=== PATIENT | male | born 1990 | race Caucasian/White ===

== ENCOUNTER 2017-06-13 01:51 | Emergency (ER) | payer OTHER ==
[~2017-06-13] VITALS: Ht 172.7 cm; Wt 88.5 kg
[~2017-06-13 01:51] MED LIST: SULF1TAB7 PO
--- NOTE | 2017-06-13 02:17 | ED Lower Extremity ---
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 LEFT KNEE ON A METAL CORNER POST OF A CHAIN LENGTH FENCE, AROUND 0030 TODAY KNEE IS SWOLLEN AND PAINFUL TO WALK ON NO OTHER INJURIES FROM INCIDENT NO PRIOR INJURIES TO THIS KNEE Allergies and Home Medications Allergies Coded Allergies: cephalexin (Verified Allergy, Mild, 05/04/14) Home Medications Trimethoprim/Sulfamethoxazole 1 Ea Tablet, 1 TAB PO BID Prescribed by: EM JAIN on 05/04/14 3597 Constitutional: no symptoms reported Musculoskeletal: see HPI Skin: no symptoms reported Psychiatric/Neurological: No Symptoms Reported Past Geoudzr-Znckck-Cbpxqc Hx Patient Social History Alcohol Use: Occasionally Uses Recreational Drug Use: No Smoking Status: Never a Smoker 2nd Hand Smoke Exposure: No Recent Foreign Travel: No Contact w/Someone Who Travel: No Recent Hopitalizations: No Immunizations Up To Date Tetanus Booster (TDap): Unknown Seasonal Allergies Seasonal Allergies: No Past Medical History Surgeries: No Respiratory: No Cardiac: No Neurological: No Gastrointestinal: No Musculoskeletal: No Endocrine: No Cancer: No Psychosocial: No Integumentary: No Blood Disorders: No Adverse Reaction/Blood Tranf: No Family Medical History No Pertinent Family Hx Physical Exam Vital Signs Capillary Refill : General Appearance: WD/WN, no apparent distress 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 Referrals: LEONID JORDAN MD NO,LOCAL PHYSICIAN (PCP) Primary Care Physician Patient Instructions: Contusion (DC), Going Up and Down Curbs or Stairs With a Walker or Crutches, How to Use Crutches, Knee Immobilizer (DC), Knee Sprain (DC) Add. Discharge Instructions: ICE TO AREA AT 20 MINUTE INTERVALS ANJUM WRAP AND KNEE IMMOBILIZER AND CRUTCHES AT ALL TIMES ELEVATE LEG MUCH POSSIBLE FOLLOW UP WITH DR. JORDAN / ORTHO 4 STATES IN 1-2 DAYS FOR FURTHER CARE All discharge instructions reviewed with patient and/or family. Voiced understanding. Scripts Naproxen (Naproxen) 500 Mg Tablet 500 MG PO BID, #20 TAB Prov: CHERYL COHEN DO 06/13/17 Work/School Note: Work Release Form Date Seen in the Emergency Department: Jun 13, 2017 Restrictions: Need Release from Doctor CHERYL COHEN DO Jun 13, 2017 02:17
[2017-06-13] MEDS ORDERED: RX-NAPROXEN (NAPROSYN) 250 MG TAB PPK#4 PO STA (02:41)
[2017-06-13] MEDS ORDERED: NAPR-915 PO (02:44)
[2017-06-13 02:45] VITALS: BP 122/74
[2017-06-13] MEDS ORDERED: RX-NAPROXEN (NAPROSYN) 250 MG TAB PPK#4 PO PRN (03:15)
--- NOTE | 2017-06-13 06:56 | Diagnostic Imaging Report ---
INDICATION: Left knee pain and swelling. Injury. FINDINGS: Alignment of the left knee appears normal. There is no acute fracture. There is no significant joint effusion. There is no focal soft tissue abnormality. Nonspecific density projecting over the left leg along the posterior aspect of the calf on the lateral view may reflect a tattoo. This appears to be on the skin surface. IMPRESSION: No evidence of an acute fracture, malalignment or joint effusion. Dictated by: Dictated on workstation # [id number]
== END 2017-06-13 02:45 | disposition home or self-care (01) ==
LOC: EDUNIT# 01:51 → ER 01:55
DX: S80.02XA Contusion of left knee, initial encounter (principal); Z88.1 Allergy status to other antibiotic agents; W22.09XA Striking against other stationary object, initial encounter
CPT/HCPCS: 73562

== ENCOUNTER 2022-12-18 18:26 | Emergency (ER) | payer OTHER ==
[~2022-12-18] VITALS: Ht 172 cm; Wt 99.0 kg
[~2022-12-18 18:26] MED LIST changes: +NAPR-915 PO
[2022-12-18 18:32] VITALS: BP 137/89
--- NOTE | 2022-12-18 18:36 | ED Abdominal Pain ---
General Stated Complaint: RIGHT RIB PAIN Source of Information: Patient Exam Limitations: No Limitations History of Present Illness Date Seen by Provider: Dec 18, 2022 Time Seen by Provider: 18:30 Initial Comments Patient is a 32-year-old male who presents to the emergency department with a chief complaint of right upper quadrant abdominal pain, right lowest rib pain onset about 4 days ago. At its worst it is a "6" currently a "4". He states it hurts to take a deep breath. The pain does not radiate. The last time he ate was about 10:00 this morning. Eating does not appear to make the pain any worse. He has not had fevers or chills. No diarrhea. No problems with urination. No prior abdominal surgeries. No family history of gallbladder disease. He has been playing a bit quite a bit of golf recently. Other than that no direct trauma. No fevers, chills, productive cough. Did take some ibuprofen about an hour prior to arrival but it has not helped. Timing/Duration: 3-4 Days Severity/Quality: Sharp, Stabbing Location: RUQ Radiation: No Radiation Modifying Factors: Worsens With Breathing, Worsens With Palpation Associated Symptoms: Other (pleuritic pain) Allergies and Home Medications Allergies Coded Allergies: cephalexin (Verified Allergy, Mild, 05/04/14) Patient Home Medication List Home Medication List Reviewed: Yes Dicyclomine HCl (Dicyclomine HCl) 20 Mg Tablet, 20 MG PO QIDACHS PRN for right upp abdominal pain Prescribed by: CHRISTINA BELTRAN on 12/18/221956 Naproxen (Naproxen) 500 Mg Tablet, 500 MG PO BID Prescribed by: CHERYL COHEN on 06/13/17 0244 Trimethoprim/Sulfamethoxazole (Bactrim DS) 1 Ea Tablet, 1 TAB PO BID Prescribed by: EM JAIN on 05/04/14 2301 Review of Systems Review of Systems Constitutional: see HPI Respiratory: Shortness of Air Cardiovascular: No Symptoms Reported Gastrointestinal: Abdominal Pain (RUQ) Genitourinary: No Symptoms Reported Musculoskeletal: no symptoms reported Skin: no symptoms reported Psychiatric/Neurological: No Symptoms Reported All Other Systems Reviewed Negative Unless Noted: Yes Past Dobinib-Gceusy-Tkremr Hx Immunizations Up To Date Tetanus Booster (TDap): Unknown Seasonal Allergies Seasonal Allergies: No Past Medical History Surgeries: No Respiratory: No Cardiac: No Neurological: No Gastrointestinal: No Musculoskeletal: No Endocrine: No Cancer: No Psychosocial: No Integumentary: No Blood Disorders: No Adverse Reaction/Blood Tranf: No Family Medical History No Pertinent Family Hx Physical Exam Vital Signs Vital Signs - First Documented 12/18/22 18:32 Temp 37.0 Pulse 98 Resp 14 B/P (MAP) 137/89 (105) Pulse Ox 98 O2 Delivery Room Air Capillary Refill : Height/Weight/BMI Height: 5'8" Weight: 195lbs. oz. 88.117594ew; 29.65 BMI Method:Stated General Appearance: WD/WN, mild distress HEENT: PERRL/EOMI Respiratory: lungs clear, normal breath sounds, no respiratory distress, no accessory muscle use, other (splinting/guarding right side) Cardiovascular: regular rate, rhythm Gastrointestinal: soft, tenderness (RUQ + Chávez's) Extremities: normal range of motion, normal inspection Neurologic/Psychiatric: alert, normal mood/affect, oriented x 3 Skin: normal color, warm/dry Progress/Results/Core Measures Results/Orders Lab Results Laboratory Tests Test 12/18/22 18:46 Range/Units White Blood Count 9.5 4.3-11.0 10^3/uL Red Blood Count 5.14 4.30-5.52 10^6/uL Hemoglobin 14.6 13.3-17.7 g/dL Hematocrit 46 40-54 % Mean Corpuscular Volume 89 80-99 fL Mean Corpuscular Hemoglobin 28 25-34 pg Mean Corpuscular Hemoglobin Concent 32 32-36 g/dL Red Cell Distribution Width 12.7 10.0-14.5 % Platelet Count 290 130-400 10^3/uL Mean Platelet Volume 10.9 9.0-12.2 fL Immature Granulocyte % (Auto) 1 % Neutrophils (%) (Auto) 63 42-75 % Lymphocytes (%) (Auto) 25 12-44 % Monocytes (%) (Auto) 7 0-12 % Eosinophils (%) (Auto) 3 0-10 % Basophils (%) (Auto) 1 0-10 % Neutrophils # (Auto) 6.0 1.8-7.8 10^3/uL Lymphocytes # (Auto) 2.4 1.0-4.0 10^3/uL Monocytes # (Auto) 0.7 0.0-1.0 10^3/uL Eosinophils # (Auto) 0.2 0.0-0.3 10^3/uL Basophils # (Auto) 0.1 0.0-0.1 10^3/uL Immature Granulocyte # (Auto) 0.1 0.0-0.1 10^3/uL Sodium Level 137 135-145 MMOL/L Potassium Level 3.8 3.6-5.0 MMOL/L Chloride Level 106 98-107 MMOL/L Carbon Dioxide Level 17 L 21-32 MMOL/L Anion Gap 14 5-14 MMOL/L Blood Urea Nitrogen 21 H 7-18 MG/DL Creatinine 1.13 0.60-1.30 MG/DL Estimat Glomerular Filtration Rate 88 BUN/Creatinine Ratio 19 Glucose Level 93 70-105 MG/DL Calcium Level 9.7 8.5-10.1 MG/DL Corrected Calcium 8.5-10.1 MG/DL Total Bilirubin 0.4 0.1-1.0 MG/DL Aspartate Amino Transf (AST/SGOT) 54 H 5-34 U/L Alanine Aminotransferase (ALT/SGPT) 97 H 0-55 U/L Alkaline Phosphatase 56 40-136 U/L Total Protein 8.4 H 6.4-8.2 GM/DL Albumin 4.7 H 3.2-4.5 GM/DL My Orders Orders - CHRISTINA BELTRAN MD Ed Iv/Invasive Line Start (12/18/22 18:40) Cbc And Automated Diff (12/18/22 18:40) Comprehensive Metabolic Panel (12/18/22 18:40) Chest Pa/Lat (2 View) (12/18/22 18:40) Ketorolac Injection (Ketorolac Injection (12/18/22 19:00) Medications Given in ED Current Medications Medications Dose Ordered Sig/Sundeep Route Start Time Stop Time Status Last Admin Dose Admin Ketorolac Tromethamine 15 mg ONCE ONCE IVP 12/18/22 19:00 12/18/22 19:01 DC 12/18/22 18:54 15 MG Vital Signs/I&O 12/18/22 18:32 Temp 37.0 Pulse 98 Resp 14 B/P (MAP) 137/89 (105) Pulse Ox 98 O2 Delivery Room Air Progress Progress Note : Time: 19:51 Progress Note Patient seen and evaluated by me. Eval today includes physical exam, CBC, CMP and single view CXR. Pertinent physical exam includes WDWN male with tenderness to palpation at the right lower rib border/RUQ. He has + Chávez's sign. No involuntary guarding or rebound tenderness. BS are present. No rashes over the anterio abdominal wall. No crepitance in the right lower chest. BS are equal. ddx includes pleurisy, biliary colic/cholecystitis, musculoskeletal abdominal wall pain Labs independently reviewed and interpreted by me. His CBC is normal. HIs CMP shows mildly elevated LFT's - he is apparently a fairly heavy drinker. Tbili is normal. CO2 is slightly low at 17. CXR per radiologist is neg. I suspect based on physical exam he may have some GB issues - no current findings to suggest acute cholecystitis. I gave him 15mg Toradol IV which greatly improved his pain. Will send out with earle for symptom management. REturn precautions provided. Advised follow up with PCP. All questions sought and answered. Diagnostic Imaging Diagonstic Imaging: Xray Plain Films/CT/US/NM/MRI: chest Comments [facility] [address]ET[facility] [facility] [place], [place] NAME: BOGDAN PETERSON [facility] REC#: [id number] PT STATUS: REG ER : 1990 PHYSICIAN: CHRISTINA BELTRAN MD ADMIT DATE: 12/18/22/ER Signed Date of Exam:12/18/22 CHEST PA/LAT (2 VIEW) EXAMINATION: CHEST (PA AND LATERAL) CLINICAL INDICATION: 32-year-old male, right lower rib and chest pain. COMPARISON: None. FINDINGS: Heart size and mediastinal contours are unremarkable. There are low lung volumes. There is no pneumothorax or pleural effusion. There is no identified focal airspace consolidation. There is no identified significantly displaced rib fracture. IMPRESSION: 1. No identified acute cardiopulmonary abnormality. 2. No identified displaced rib fracture. Dictated by: Dictated on workstation # [id number] Dict: 12/18/221914 Trans: 12/18/221917 CVB [id number] Interpreted by: FORREST PRIETO MD Electronically signed by: FORREST PRIETO MD 12/18/221917 Departure Impression Primary Impression: Abdominal pain Qualified Codes: R10.11 - Right upper quadrant pain Disposition: 01 HOME, SELF-CARE Condition: Improved Departure-Patient Inst. Decision time for Depature: 19:51 Referrals: NO,LOCAL PHYSICIAN (PCP/Family) Primary Care Physician Patient Instructions: Abdominal pain Add. Discharge Instructions: Watch your diet over the next 3-4 days - if fatty foods cause your stomach to ache, that reaffirms potentially your Gallbladder is acting up. If you have a fever (over 101) with the pain, and nausea and vomiting - please return to the Emergency Department for re-evaluation. I have prescribed some Bentyl for you (dicyclomine) 20mg tablets -this may help if the pain is annoying/bothersome. You can take it 30min before eating as needed up to 4 times a day. Always take ibuprofen with food - you can take 600mg (3 pills) every 6 hours as needed for pain, Scripts Dicyclomine HCl (Dicyclomine HCl) 20 Mg Tablet 20 MG PO QIDACHS PRN for right upp abdominal pain, #60 TAB Prov: CHRISTINA BELTRAN MD 12/18/22 CHRISTINA BELTRAN MD Dec 18, 2022 18:36
[2022-12-18 18:51] LABS: BASOPHILS # (AUTO) 0.1 10^3/uL (0.0-0.1); BASOPHILS % (AUTO) 1 % (0-10); EOSINOPHILS # (AUTO) 0.2 10^3/uL (0.0-0.3); EOSINOPHILS % (AUTO) 3 % (0-10); HEMATOCRIT 46 % (40-54); HEMOGLOBIN 14.6 g/dL (13.3-17.7); LYMPHOCYTES # (AUTO) 2.4 10^3/uL (1.0-4.0); LYMPHOCYTES % (AUTO) 25 % (12-44); MEAN CORPUSCULAR HEMOGLOBIN 28 pg (25-34); MEAN CORPUSCULAR HGB CONC 32 g/dL (32-36); MEAN CORPUSCULAR VOLUME 89 fL (80-99); MEAN PLATELET VOLUME 10.9 fL (9.0-12.2); MONOCYTES # (AUTO) 0.7 10^3/uL (0.0-1.0); MONOCYTES % (AUTO) 7 % (0-12); NEUTROPHILS % (AUTO) 63 % (42-75); PLATELET COUNT 290 10^3/uL (130-400); WHITE BLOOD COUNT 9.5 10^3/uL (4.3-11.0)
[2022-12-18] MEDS ORDERED: KETOROLAC INJ 15 MG/ML VIAL IVP ONE (19:00)
[2022-12-18 19:08] LABS: ALBUMIN 4.7 GM/DL (3.2-4.5); CHLORIDE 106 MMOL/L (98-107); POTASSIUM 3.8 MMOL/L (3.6-5.0); SODIUM 137 MMOL/L (135-145)
[2022-12-18 19:09] LABS: CALCIUM 9.7 MG/DL (8.5-10.1)
[2022-12-18 19:10] LABS: GLUCOSE 93 MG/DL (70-105); TOTAL PROTEIN 8.4 GM/DL (6.4-8.2)
[2022-12-18 19:11] LABS: CARBON DIOXIDE 17 MMOL/L (21-32)
[2022-12-18 19:12] LABS: BILIRUBIN,TOTAL 0.4 MG/DL (0.1-1.0)
[2022-12-18 19:14] LABS: ALKALINE PHOSPHATASE 56 U/L (40-136); CREATININE SERUM 1.13 MG/DL (0.60-1.30); GFR ESTIMATED 88
[2022-12-18 19:15] LABS: BUN/CREATININE RATIO 19
[2022-12-18 19:17] LABS: ALANINE AMINOTRANSFERASE 97 U/L (0-55)
--- NOTE | 2022-12-18 19:18 | Diagnostic Imaging Report ---
EXAMINATION: CHEST (PA AND LATERAL) CLINICAL INDICATION: 32-year-old male, right lower rib and chest pain. COMPARISON: None. FINDINGS: Heart size and mediastinal contours are unremarkable. There are low lung volumes. There is no pneumothorax or pleural effusion. There is no identified focal airspace consolidation. There is no identified significantly displaced rib fracture. IMPRESSION: 1. No identified acute cardiopulmonary abnormality. 2. No identified displaced rib fracture. Dictated by: Dictated on workstation # [id number]
[2022-12-18] MEDS ORDERED: DICY20TA PO (19:57)
== END 2022-12-18 20:01 | disposition home or self-care (01) ==
LOC: EDUNIT# 18:26 → ER 18:28
DX: R10.11 Right upper quadrant pain (principal); Z88.1 Allergy status to other antibiotic agents; R79.89 Other specified abnormal findings of blood chemistry
CPT/HCPCS: 36415; 71046; 80053; 85025

== ENCOUNTER → 2023-01-14 | Outpatient (CLI) | payer OTHER ==
[~2023-01-14] MED LIST changes: +DICY20TA PO
--- NOTE | 2023-01-14 16:03 | Diagnostic Imaging Report ---
PROCEDURE: US Gallbladder. TECHNIQUE: Multiple real-time grayscale images were obtained over the right upper quadrant in various projections. INDICATION: Right upper quadrant abdominal pain. Liver parenchyma is homogeneous with normal echotexture. The portal vein is patent with hepatopetal flow. The gallbladder is clear with no stones or wall thickening. The common duct is not dilated. The pancreas is obscured by bowel gas. Aorta is unremarkable. IVC is obscured by bowel gas. Right kidney measures 10.4 cm in length. There is no hydronephrosis. There is no free fluid. IMPRESSION: Unremarkable right upper quadrant ultrasound. Dictated by: Dictated on workstation # [id number]
== END ==
LOC: RAD 12:40
PROVIDERS: ATTEND Surgery
DX: R10.11 Right upper quadrant pain (principal)
CPT/HCPCS: 76705

== ENCOUNTER → 2023-01-27 | Outpatient (CLI) | payer OTHER ==
[~2023-01-27] MED LIST changes: +CATHETER FLUSH 10 ML SYR IVP PRN
--- NOTE | 2023-01-27 12:59 | Diagnostic Imaging Report ---
INDICATION: Right upper quadrant pain. TECHNIQUE: Patient was administered 5.4 mCi technetium 99m Choletec intravenously and imaging over the abdomen was performed. At 1 hour, patient ingested 8 ounces of Ensure and a gallbladder ejection fraction was calculated. The patient denied discomfort during the study. FINDINGS: There is homogeneous uptake of activity by the liver with prompt excretion of activity into the gallbladder and common duct. There is normal passage of activity into the small bowel. Gallbladder ejection fraction is normal at 47%. IMPRESSION: Normal HIDA scan and gallbladder ejection fraction. Dictated by: Dictated on workstation # [id number]
== END ==
LOC: CARD 09:45
PROVIDERS: ATTEND Surgery
DX: R10.11 Right upper quadrant pain (principal)
CPT/HCPCS: 78227; A9537